=== PATIENT | female | born 1990 | race Caucasian/White ===

== ENCOUNTER 2016-11-06 21:30 | Inpatient (IN) | payer OTHER ==
[~2016-11-06] VITALS: Ht 165.1 cm; Wt 74.0 kg
[~2016-11-06 21:30] MED LIST: PRENAT PO
[2016-11-06 21:48] VITALS: Ht 165.1 cm; Wt 74.0 kg
[2016-11-06 21:49] VITALS: BP 110/69; PULSE 64; RESP 18
[2016-11-06] MEDS ORDERED: CARBOPROST 250 MCG INJ IM PRN (22:00)
[2016-11-06] MEDS ORDERED: LACTATED RINGER'S 1,000 ML IV PRN (22:00)
[2016-11-06] MEDS ORDERED: LIDOCAINE 1% (MPF) 30 ML INJ INJ PRN (22:00)
[2016-11-06] MEDS ORDERED: METHYLERGONOVINE 0.2 MG INJ IM PRN (22:00)
[2016-11-06] MEDS ORDERED: OXYTOCIN 30 UNITS/LR 500 ML IV PRN (22:00)
[2016-11-06] MEDS ORDERED: IBUPROFEN 600 MG TAB PO PRN (22:00)
[2016-11-06] MEDS ORDERED: MISOPROSTOL 200 MCG TAB PR PRN (22:00)
[2016-11-06] MEDS ORDERED: OXYTOCIN 30 UNITS/LR 500 ML IV SCH ×3 (22:00)
[2016-11-06] MEDS ORDERED: BUTORPHANOL 2 MG INJ IV PRN (22:00)
[2016-11-06 22:21] LABS: BASOPHILS % 0.4 % (0.0-2.0); EOSINOPHILS % 0.4 % (0.0-7.0); HEMATOCRIT 36.4 % (37.0-47.0); HEMOGLOBIN 12.3 g/dl (12.0-16.0); LYMPHOCYTES # 2.4 10^3/ul (0.8-2.9); LYMPHOCYTES % 33.1 % (15.0-51.0); MEAN CORPUSCULAR HEMOGLOBIN 30.6 pg (29.0-33.0); MEAN CORPUSCULAR HGB CONC 33.8 g/dl (32.0-37.0); MEAN CORPUSCULAR VOLUME 90.5 fl (82.0-101.0); MEAN PLATELET VOLUME 11.1 fl (7.4-10.4); MONOCYTE # 0.7 10^3/ul (0.3-0.9); MONOCYTES % 8.8 % (0.0-11.0); NEUTROPHILS % 56.6 % (39.0-77.0); PLATELET COUNT 155 10^3/UL (140-415); RED BLOOD COUNT 4.02 10^6/ul (4.20-5.40); RED CELL DISTRIBUTION WIDTH 14.7 % (11.5-14.5); WHITE BLOOD COUNT 7.4 10^3/ul (4.8-10.8)
[2016-11-06 22:45] LABS: INR 0.9; PARTIAL THROMBOPLASTIN TIME 26.9 Sec (25.0-35.0); PROTIME 12.1 Sec (12.2-14.2); PT RATIO 0.9
[2016-11-06] MEDS: LACTATED RINGER'S 1,000 ML IV SCH (22:57)
[2016-11-07] MEDS: LACTATED RINGER'S 1,000 ML IV SCH ×3 (04:17→09:25)
[2016-11-07] MEDS ORDERED: FENTAnyl 2MCG/ML-ROPIV 0.2% 100 ML ONE (08:28)
[2016-11-07] MEDS ORDERED: NALOXONE (0.4 MG/ML) INJ IV PRN (09:00)
[2016-11-07] MEDS ORDERED: HYDROmorphONE 1 MG/ML SYG IV PRN ×2 (09:00)
[2016-11-07] MEDS ORDERED: DIPHENHYDRAMINE 50 MG INJ IV PRN (09:00)
[2016-11-07] MEDS ORDERED: FENTAnyl 2MCG/ML-ROPIV 0.2% 100 ML BAG EPI SCH (09:00)
[2016-11-07] MEDS ORDERED: ONDANSETRON 4 MG INJ IV PRN (09:00)
[2016-11-07] MEDS ORDERED: KETOROLAC 30 MG INJ IV PRN (09:00)
--- NOTE | 2016-11-07 13:20 | HP ---
Date/Time of Note Date/Time of Note DATE: 11/07/16 TIME: 13:20 OB - History Hx of Present Free Text/Dictation 39+ : 2 Para: 1 Care: Good Care Ultrasounds: No ultrasounds Obstetrical Complications: None Medical Complications: None Past Family/Social History * Past Medical, Surgical, Family and Obstetric Histories reviewed from chart. OB Admission Exam Vital Signs Vital Signs Vital Signs Date Time Temp Pulse Resp B/P Pulse Ox O2 Delivery O2 Flow Rate FiO2 11/06/16 21:49 97.5 64 18 110/69 Room Air Physical Exam Abdomen: WNL Extremities: Normal Cervical Dilatation: 2cm Effacement: 75% Station: -1 Membranes: Intact Heart Rate: 140's Accelerations: Accelerations Present Decelerations: No Decelerations Varibility: Moderate Contractions on Admission: 6-10 Minutes Apart Last 72 hours Lab Results CBC & BMP 11/06/16 21:35 OB Assessment/Plan Reason for admission: observation Plan: Expectant Management Induction Method: per Pitocin Protocol RICK BRAVO M.D. Nov 07, 2016 13:20
--- NOTE | 2016-11-07 13:22 | LDN ---
Date/Time of Note Date/Time of Note DATE: 11/07/16 TIME: 13:21 Delivery Summary 39+ Placenta Delivered: Spontaneously Meconium: Light Episiotomy: No Perineal laceration: 1 Anesthesia type: Epidural Estimated blood loss: 200 Sponge & Needle done & correct: Yes All needle counts correct: Yes Any foreign bodies felt in the: No Problems: Infant Delivery Information Apgars 1 Minute: 9 5 Minute: 9 Suctioning Nose & mouth suctioned at pancho: Yes Delee suction performed: Yes Umbilical Cord Umbilical cord with: 3 Vessels Cord presentations: nuchal cord (x1) Cord Blood was obtained: Yes Mother & Baby Disposition Disposition Mom & Baby to Maternity; Good: Yes Baby to NICU: No RICK BRAVO M.D. Nov 07, 2016 13:21
[2016-11-07] MEDS ORDERED: METHYLERGONOVINE 0.2 MG INJ IM PRN (15:00)
[2016-11-07] MEDS ORDERED: CARBOPROST 250 MCG INJ IM PRN (15:00)
[2016-11-07] MEDS ORDERED: WITCH HAZEL/GLYCERIN PAD PR PRN (15:00)
[2016-11-07] MEDS ORDERED: SENNA/DOCUSATE NA (8.6MG/50MG) TAB PO PRN (15:00)
[2016-11-07] MEDS ORDERED: MISOPROSTOL 200 MCG TAB PR PRN (15:00)
[2016-11-07] MEDS ORDERED: OXYCODONE/ASPIRIN (4.88/325) TAB PO PRN (15:00)
[2016-11-07] MEDS ORDERED: ZOLPIDEM 5 MG TAB PO PRN (15:00)
[2016-11-07] MEDS ORDERED: OXYTOCIN 30 UNITS/LR 500 ML IV PRN (15:00)
[2016-11-07] MEDS ORDERED: LANOLIN 7 GM TUBE TOP PRN (15:00)
[2016-11-07] MEDS: LACTATED RINGER'S 1,000 ML IV* SCH ×2 (17:26→23:36)
[2016-11-07] MEDS: IBUPROFEN 600 MG TAB PO SCH (17:30)
[2016-11-07 20:00] VITALS: BP 112/58; PULSE 62; RESP 20
[2016-11-07] MEDS: SENNA/DOCUSATE NA (8.6MG/50MG) TAB PO SCH (20:36)
[2016-11-08] VITALS: BP 115/59; PULSE 68; RESP 20
[2016-11-08] MEDS: IBUPROFEN 600 MG TAB PO SCH ×5 (00:27→23:41)
[2016-11-08 04:00] VITALS: BP 96/55; PULSE 53; RESP 18
[2016-11-08 07:50] VITALS: BP 98/61; PULSE 71; RESP 18
[2016-11-08 09:13] LABS: BASOPHILS % 0.4 % (0.0-2.0); EOSINOPHILS # 0.1 10^3/ul (0.0-0.5); EOSINOPHILS % 1.3 % (0.0-7.0); HEMATOCRIT 35.6 % (37.0-47.0); HEMOGLOBIN 11.8 g/dl (12.0-16.0); LYMPHOCYTES % 28.6 % (15.0-51.0); MEAN CORPUSCULAR HEMOGLOBIN 30.2 pg (29.0-33.0); MEAN CORPUSCULAR HGB CONC 33.1 g/dl (32.0-37.0); MEAN PLATELET VOLUME 11.1 fl (7.4-10.4); MONOCYTE # 0.5 10^3/ul (0.3-0.9); MONOCYTES % 7.3 % (0.0-11.0); NEUTROPHILS % 61.7 % (39.0-77.0); PLATELET COUNT 135 10^3/UL (140-415); RED BLOOD COUNT 3.91 10^6/ul (4.20-5.40); RED CELL DISTRIBUTION WIDTH 15.1 % (11.5-14.5)
[2016-11-08] MEDS: SENNA/DOCUSATE NA (8.6MG/50MG) TAB PO SCH ×2 (09:31→20:27)
[2016-11-08 12:25] VITALS: BP 101/61; PULSE 62; RESP 19
[2016-11-08 16:00] VITALS: BP 106/62; PULSE 66; RESP 18
[2016-11-08 20:10] VITALS: BP 110/62; PULSE 58; RESP 17
[2016-11-09 04:00] VITALS: BP 104/70; PULSE 61; RESP 17
[2016-11-09] MEDS: IBUPROFEN 600 MG TAB PO SCH ×2 (05:28→11:56)
[2016-11-09] MEDS: SENNA/DOCUSATE NA (8.6MG/50MG) TAB PO SCH (08:40)
[2016-11-09] MEDS ORDERED: DIPHTH/TET/ACEL PERTUSS (ADULT) 0.5 ML VIAL IM* ONE (09:00)
--- NOTE | 2016-11-09 11:25 | QN ---
Documentation Comment Late Note 11/09/16 PPD# 1 i stable afebrile tolerates diet No VB +BM +voids VS stable Gen NAD Abd soft NT ND Genitalia No blood at perinium ---->Discharge Home Tomorrow ---->ambulation RICK BRAVO M.D. Nov 09, 2016 11:25
--- NOTE | 2016-11-09 11:26 | DS ---
Date/Time of Note Date/Time of Note DATE: 11/09/16 TIME: 11:25 Discharge Summary Admission/Discharge Info Admit Date/Time Nov 06, 2016 at 21:30 Discharge Date/Time nov Discharge Diagnosis Patient Condition: Good Procedures vaginal delivery Hospital Course uneventful Home Meds Reported Medications Multivit/Min/Fol Ac/Iron/Pren* ( S*) 1 Tab Tab, 1 TAB PO DAILY, TAB 11/25/14 Primary Care Provider Not On Staff Doctor RICK BRAVO M.D. Nov 09, 2016 11:26
== END 2016-11-09 15:25 | disposition home or self-care (01) | DRG 775 ==
LOC: L-D 21:30 → PP1 11-07 14:02
PROVIDERS: ADMIT Obstetrics & Gynecology; ATTEND Obstetrics & Gynecology
PROC: 10E0XZZ Delivery of Products of Conception, External Approach (ICD-10-PCS; principal; 2016-11-07)
PROC: 0HQ9XZZ Repair Perineum Skin, External Approach (ICD-10-PCS; 2016-11-07)
PROC: 3E033VJ Introduction of Other Hormone into Peripheral Vein, Percutaneous Approach (ICD-10-PCS; 2016-11-07)
DX: O69.81X0 Labor and delivery complicated by cord around neck, without compression, not applicable or unspecified (principal); O70.0 First degree perineal laceration during delivery; Z3A.39 39 weeks gestation of pregnancy; Z37.0 Single live birth
CPT/HCPCS: 62319; 85025; 85610; 85730; 86592; 86900; 86901; 90715; J2590; J3010; J7120